=== PATIENT | male | born 1950 | race Two or more races ===

== ENCOUNTER 2024-12-17 06:45 | Day surgery (SDC) | payer MEDICARE, OTHER ==
[2024-12-17] MEDS ORDERED: Propofol 200 MG/20 ML SDV ONE (07:18)
[2024-12-17] MEDS ORDERED: fentaNYL 100 MCG/2 ML SDV ONE ×2 (07:18→08:08)
[2024-12-17] MEDS ORDERED: propofoL 500 MG/50 ML 50 ML ONE (07:18)
[2024-12-17] MEDS ORDERED: ceFAZolin 1 GM Vial ONE (07:21)
[2024-12-17] MEDS ORDERED: Morphine 10 MG/ML SDV ONE (07:21)
[2024-12-17] MEDS ORDERED: Bupivacaine 0.5% 30 ML SDV ONE (07:21)
[2024-12-17] MEDS ORDERED: Sodium Chloride 0.9% 20 ML ONE (07:23)
[2024-12-17] MEDS ORDERED: Sugammadex Sodium 200 MG/2 ML VIAL IV ONE ×2 (07:23→08:32)
[2024-12-17] MEDS ORDERED: Ropivacaine 0.5% 5 MG/ML 30 ML SDV ONE (07:24)
[2024-12-17] MEDS ORDERED: Famotidine 20 MG/2 ML SDV ONE (07:29)
[2024-12-17] MEDS: Lactated Ringers 1,000 ML IV SCH (07:29)
[2024-12-17] MEDS: Ciprofloxacin in D5W 400 MG in Premix Bag 1 BAG IV SCH (07:39)
[2024-12-17] MEDS ORDERED: Ondansetron 4 MG/2 ML SDV IVPUSH PRN ×2 (08:00→09:15)
[2024-12-17] MEDS ORDERED: Phenylephrine HCl In 0.9% NaCl 1 MG/10 ML Syringe IVPUSH PRN (08:00)
[2024-12-17] MEDS ORDERED: Naloxone 0.4 MG/ML SDV IVPUSH PRN (08:00)
[2024-12-17] MEDS ORDERED: Morphine 2 MG/ML SYRINGE IVPUSH PRN (08:00)
[2024-12-17] MEDS ORDERED: Metoclopramide 10 MG/2 ML SDV IVPUSH PRN (08:00)
[2024-12-17] MEDS ORDERED: Albuterol 0.083% 2.5 MG/3 ML Neb Soln NEB PRN (08:00)
[2024-12-17] MEDS ORDERED: fentaNYL 50 MCG/ML SDV IVPUSH PRN (08:00)
[2024-12-17] MEDS ORDERED: HYDROmorphone 1 MG/ML Syringe IVPUSH PRN (08:00)
[2024-12-17] MEDS ORDERED: Phenylephrine HCl In 0.9% NaCl 1 MG/10 ML Syringe ONE (08:04)
[2024-12-17] MEDS ORDERED: Ondansetron 4 MG/2 ML SDV ONE (08:32)
[2024-12-17] MEDS ORDERED: Dexamethasone 4 MG/ML 5 ML MDV ONE (08:32)
[2024-12-17] MEDS ORDERED: Rocuronium 100 MG/10 ML MDV ONE (08:32)
[2024-12-17] MEDS ORDERED: Lidocaine 2% 5 ML SDV ONE (08:54)
[2024-12-17] MEDS ORDERED: dexmedeTOMIDine HCl 200 MCG/2 ML SDV ONE (09:07)
[2024-12-17] MEDS ORDERED: Lactated Ringers 1,000 ML IV SCH (09:15)
[2024-12-17] MEDS ORDERED: traMADol 50 MG Tab PO PRN (09:15)
== END 2024-12-17 10:35 | disposition home or self-care (01) ==
LOC: MW.SDS 06:45
PROVIDERS: ATTEND Surgery
DX: K43.6 Other and unspecified ventral hernia with obstruction, without gangrene (principal); K42.0 Umbilical hernia with obstruction, without gangrene; I10 Essential (primary) hypertension; E11.9 Type 2 diabetes mellitus without complications; E78.5 Hyperlipidemia, unspecified; I25.10 Atherosclerotic heart disease of native coronary artery without angina pectoris; Z95.1 Presence of aortocoronary bypass graft; Z79.82 Long term (current) use of aspirin; Z79.84 Long term (current) use of oral hypoglycemic drugs; Z79.899 Other long term (current) drug therapy; Z88.0 Allergy status to penicillin; Z88.5 Allergy status to narcotic agent; Z88.2 Allergy status to sulfonamides
CPT/HCPCS: 49592; 64488; 82947; J0131; J0665; J0744; J1100; J2272; J2371; J2704; J2795; J3010; J7120; 00790; 64486; 88302; 99100; J0690; J2003; J2405; J3490